=== PATIENT | male | born 1940 | race Two or more races ===

== ENCOUNTER 2017-02-16 08:48 | Day surgery (SDC) | payer OTHER ==
[2017-02-16] MEDS ORDERED: LR 1,000 ML IV ONE (09:03)
[2017-02-16] MEDS ORDERED: LIDOCAINE 1% 2 ML INJ ID PRN (09:03)
--- NOTE | 2017-02-16 10:20 | PDHPUP ---
History & Physical Update H&P update statement: This history and physical update is based on an assessment of the patient which was completed after admission or registration (within 24 hours), but prior to the surgery/procedure. H&P update: H&P reviewed & patient examined, no change in patient's condition since H&P completed
[2017-02-16] MEDS ORDERED: BUPIVACAINE/EPI 0.5% 30 ML SDV ONE (10:24)
[2017-02-16] MEDS ORDERED: HYDROGEN PEROXIDE 236 ML BOTTLE TP ONE (10:25)
--- NOTE | 2017-02-16 11:30 | PDANEPAE ---
ANE Past Medical History - Cardiovascular History Hx Hypertension: No Hx Arrhythmias: No Hx Chest Pain: No Hx Coronary Artery / Peripheral Vascular Disease: No Hx CHF / Valvular Disease: No Hx Palpitations: No Cardiovascular History Comment: Dizzy spells - Pulmonary History Hx COPD: No Hx Asthma/Reactive Airway Disease: No Hx Recent Upper Respiratory Infection: No Hx Oxygen in Use at Home: No Hx Sleep Apnea: No Sleep Apnea Screening Result - Last Documented: Positive - Neurologic History Hx Cerebrovascular Accident: No Hx Seizures: No Hx Dementia: No - Endocrine History Hx Diabetes: No - Renal History Hx Renal Disorders: No - Liver History Hx Hepatic Disorders: No - Neurological & Psychiatric Hx Hx Neurological and Psychiatric Disorders: No - Cancer History Hx Cancer: No - Congenital Disorder History Hx Congenital Disorders: No - GI History Hx Gastrointestinal Disorders: No - Chronic Pain History Chronic Pain: No ANE Review of Systems Review of Systems: - Exercise capacity METS (RN): 4 METS ANE Patient History - Allergies Allergies/Adverse Reactions: No Known Allergies Allergy (Unverified 02/14/17 15:19) - Home Medications Home Medications: CLONAZEPAM 0.5 mg 02/16/17 [Last Taken 02/15/17] - NPO status NPO Since - Liquids (Date): 02/16/17 NPO Since - Liquids (Time): 22:00 NPO Since - Solids (Date): 02/15/17 NPO Since - Solids (Time): 22:00 - Smoking Hx Smoking Status: Former smoker - Family Anes Hx Family Hx Anesthesia Complications: none ANE Labs/Vital Signs - Vital Signs Blood Pressure: 138/76 Heart Rate: 53 Respiratory Rate: 18 O2 Sat (%): 95 Height: 175.26 cm ANE Physical Exam - Airway Mallampati Score: Class 2 Mouth exam: dentures - ASA Status ASA Status: II ANE Anesthesia Plan Anesthesia Plan: GA w LMA
[2017-02-16] MEDS ORDERED: MIDAZOLAM 2 MG/2 ML VIAL ONE (11:37)
[2017-02-16] MEDS ORDERED: fentaNYL 100 MCG/2 ML INJ ONE (11:37)
[2017-02-16] MEDS ORDERED: PROPOFOL 200 MG/20 ML VIAL ONE (11:38)
[2017-02-16] MEDS ORDERED: ONDANSETRON 4 MG/2 ML VIAL ONE (12:16)
[2017-02-16] MEDS ORDERED: PHENYLEPHRINE HCL 100 MCG/ML SYR ONE (12:16)
[2017-02-16] MEDS ORDERED: METOCLOPRAMIDE 10 MG/2 ML VIAL ONE (12:16)
--- NOTE | 2017-02-16 12:33 | POSTOPPROG ---
Post Op Note Date of Operation: 02/16/17 Surgeon: John Squires Anesthesiologist: Dr. Meraz Anesthesia: LMA Pre-op Diagnosis: Perineal mass Post-op Diagnosis: same Procedure: Excision Inf/Abcess present in the surg proc area at time of surgery?: Yes Depth: Superfical (Skin SQ) EBL: Minimal
[2017-02-16] MEDS ORDERED: PROMETHAZINE HCL 25 MG/ML INJ IVP PRN (12:35)
[2017-02-16] MEDS ORDERED: NALOXONE HCL 0.4 MG/ML INJ IVP PRN (12:35)
[2017-02-16] MEDS ORDERED: fentaNYL 100 MCG/2 ML INJ IVP PRN (12:35)
--- NOTE | 2017-02-16 12:36 | POSTANESTH ---
Post Anesthetic Evaluation Cardiovascular Status: Normal, Stable Respiratory Status: Normal, Stable Level of Consciousness/Mental Status: Can Participate in Eval Pain Control: Adequate, Prn Tx Ordered Nausea/Vomiting Control: Adequate, Prn Tx Ordered Complications Possibly Related to Anesthesia: None Noted
[2017-02-16 13:04] VITALS: TEMP 97.5
[2017-02-16 13:23] VITALS: BP 130/86
[2017-02-16 13:36] VITALS: PULSE 64; RESP 14; O2SAT 93
--- NOTE | 2017-02-16 21:41 | GOP ---
[f rep st] OPERATIVE REPORT DATE OF OPERATION: SURGEON: Eddi Squires MD ANESTHESIA: Laryngeal mask anesthesia. ANESTHESIOLOGIST: Dr. Meraz. PREOPERATIVE DIAGNOSIS: Perineal mass. POSTOPERATIVE DIAGNOSIS: Perineal mass. PROCEDURE PERFORMED: Excision of perineal mass. FINDINGS: Patient had what appeared to be a sebaceous cyst in the perineal area. ESTIMATED BLOOD LOSS: 10 cc. INDICATIONS: This is a 76-year-old male with a history of mass. Risks and benefits of the procedure were discussed with the patient. Questions were asked. They wished to proceed. DESCRIPTION OF PROCEDURE: Patient in the supine position initially. After satisfactory induction of laryngeal mask anesthesia, the patient was moved to modified lithotomy position. He was then preppe d and draped in the standard surgical fashion. 0.5% Marcaine was injected throughout the perineal ar ea for local anesthesia. A transverse incision was made around the punctum, and the mass itself was excised sharply. This appeared to be a sebaceous cyst. It was sent for permanent section. The area was inspected and palpated. No further lesions were identified. It was thoroughly irrigated and as pirated. The subcutaneous tissue was approximated in layers using 3-0 Vicryl in interrupted fashion. Skin was closed with 4-0 Monocryl in a subcuticular stitch. Wound was sterilely dressed, and the p atient was extubated, taken to PACU in stable condition. COMPLICATIONS: None. DRAINS: None. /[id number]/MODL
== END 2017-02-16 14:06 | disposition home or self-care (01) ==
LOC: FSGY 08:48
PROVIDERS: ATTEND Surgery
PROC: 0HB9XZX Excision of Perineum Skin, External Approach, Diagnostic (ICD-10-PCS; principal; 2017-02-16 10:45)
DX: L72.0 Epidermal cyst (principal)
CPT/HCPCS: J2250; J2370; J2405; J2704; J2765; J3010